=== PATIENT | male | born 1970 | race Caucasian/White ===

== ENCOUNTER 2021-11-29 21:53 | Emergency (ER) | payer MEDICAID ==
[2021-11-29] MEDS ORDERED: Aspirin 81 MG Tab.Chew PO ONE (22:04)
[2021-11-29] MEDS ORDERED: Ondansetron 4 MG/2 ML SDV IVPUSH ONE (22:04)
[2021-11-29] MEDS: Nitroglycerin 0.4 MG Tab.SL SL PRN ×2 (22:15→22:29)
[2021-11-29 22:41] LABS: ESTIMATED GFR 72 mL/min (>60); TROPONIN I HIGH SENSITIVITY 6.9 pg/mL (<=60.3)
[2021-11-29] MEDS ORDERED: Ketorolac 30 MG/ML SDV IVPUSH ONE (23:08)
== END 2021-11-29 23:44 ==
LOC: MERGE 21:53 → JP.ED 21:53
DX: R09.1 Pleurisy (principal); Z79.899 Other long term (current) drug therapy; Z79.82 Long term (current) use of aspirin
CPT/HCPCS: 36415; 71045; 80053; 83880; 84484; 85025; 85379; 86140; 93005; 96374; 96375; 99285; A9270; J1885; J2405